=== PATIENT | male | born 1975 | race Caucasian/White ===

== ENCOUNTER 2016-08-11 17:27 | Emergency (ER) | payer BC, OTHER ==
[2016-08-11 17:51] VITALS: BP 124/65; PULSE 74; TEMP 98; BMI 23.1
[2016-08-11] MEDS ORDERED: ALBUTEROL SO4 2.5/IPRATROPIUM 0.5 INH SOL 3 ML VIAL.NEB. NEB ONE ×2 (18:18)
[2016-08-11] MEDS ORDERED: predniSONE 20 MG TABLET (UD) PO ONE (18:18)
[2016-08-11] MEDS ORDERED: predniSONE 20 MG TABLET (UD) ONE (18:23)
--- NOTE | 2016-08-11 18:43 | PDOC ---
History of Present Illness - General Chief Complaint: Respiratory Stated Complaint: CONGESTION/[facility] Time Seen by Provider: 08/11/16 17:57 History Source: Patient Exam Limitations: No Limitations - History of Present Illness Initial Comments: 08/11/16 18:58 Patient is here/[employer], with complaints of cough greater than 3 weeks. States had a cold a few weeks ago which seemed to resolve but he has persistent moist cough. There has been intermittent yellow phlegm production but no fevers. Has a runny nose and mild congestion. Has tried cenr-ymy-jqhlirc medications including Afrin, and TheraFlu. Patient denies seasonal ALLERGIES, however suffers with high pollen seasons with rhinitis. Denies smoking history, denies any recent exposures either on or off duty. 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 denies: dizziness, earache, facial pain, fever/chills, nasal congestion, nasal drainage, shortness of breath Past History - Travel Traveled outside of the country in the last 30 days: No Close contact w/someone who was outside of country & ill: No - Past Medical History Allergies/Adverse Reactions: Allergies Allergy/AdvReac Type Severity Reaction Status Date / Time No Known Allergies Allergy Verified 08/11/16 17:48 Home Medications: Ambulatory Orders Albuterol Sulfate [Proventil HFA Inhaler -] 1 - 2 inh PO QID #1 inhaler Cetirizine HCl/Pseudoephedrine [Allergy+Congestion Relf-D Tab] 1 each PO DAILY # 30 tab 08/11/16 Prednisone [Deltasone -] 20 mg PO BID #8 tablet 08/11/16 Other medical history: NONE - Immunization History Td Vaccination: Yes TDAP Vaccination: No Immunization Up to Date: Yes - Psycho/Social/Smoking Cessation Hx Anxiety: No Suicidal Ideation: No Smoking Status: No Smoking History: Never smoked Years of Tobacco Use: 0 Have you smoked in the past 12 months: No Number of Cigarettes Smoked Daily: 0 Cigars Per Day: 0 Information on smoking cessation initiated: No Hx Alcohol Use: No Drug/Substance Use Hx: No Substance Use Type: None Review of Systems - Review of Systems Able to Perform ROS?: Yes Is the patient limited Kenyan proficient: Yes Constitutional: Yes: Symptoms Reported, See HPI, Malaise. No: Chills, Fever, Loss of Appetite HEENTM: Yes: Symptoms Reported, Nose Congestion. No: Throat Pain Respiratory: Yes: Symptoms reported, See HPI, Cough, Wheezing Cardiac (ROS): No: Symptoms Reported ABD/GI: No: Symptoms Reported : No: Symptoms Reported Musculoskeletal: Yes: Symptoms Reported Integumentary: No: Symptoms Reported All Other Systems: Reviewed and Negative *Physical Exam - Vital Signs Last Vital Signs Temp Pulse Resp BP Pulse Ox 98.0 F 74 18 124/65 97 08/11/16 17:49 08/11/16 17:49 08/11/16 17:49 08/11/16 17:49 08/11/16 17:49 - Physical Exam General Appearance: Yes: Nourished, Appropriately Dressed. No: Apparent Distress HEENT: positive: EOMI, TOBI, Normal ENT Inspection, TMs Normal (congestion ), Pharynx Normal (no redness, swelling, exudate- clear posterior sinus drainage noted), Nasal Congestion, Rhinorrhea. negative: Sinus Tenderness Neck: positive: Supple, Lymphadenopathy (R), Lymphadenopathy (L) Respiratory/Chest: positive: Lungs Clear, Normal Breath Sounds. 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 Will have follow-up with Department PMD for further evaluation and possible other treatment *DC/Admit/Observation/Transfer Diagnosis at time of Disposition: Allergic rhinitis Qualifiers: Allergic rhinitis seasonality: non-seasonal Allergic rhinitis trigger: unspecified Qualified Code(s): J30.89 - Other allergic rhinitis - Discharge Dispostion Disposition: HOME Condition at time of disposition: Stable Admit: No - Patient Instructions Printed Discharge Instructions: DI for Allergic Rhinitis Additional Instructions: Rest, drink lots of fluids: Teas, water, soups Saltwater gargles. Consider humidifier in room at night Steamy showers/seem to face break up mucus Avoid contact with allergens, exposure to pollens, close windows on a windy day Lots of handwashing and good hygiene Continue yfij-ado-ydkrizx medications for symptomatic relief- may use allergic eyedrops for itching I Continue antihistamines daily until pollen season is over; Zyrtec, Claritin, Janette during the daytime and Benadryl at nighttime as will make sleepy Proventil 2 puffs 4 times a day for the next 3 days then as needed for continued cough Complete prednisone 40 mg daily for the additional 4 days Tylenol or Motrin for fever and pain Followup with private physician in one to 2 days as needed Consider following up with an supervisor inspecting/ground surveillance systems operator for skin testing and possible allergy shots Return to emergency department for worsened symptoms, fevers, dehydration - Post Discharge Activity Work/School Note: Back to Work
== END 2016-08-11 19:28 | disposition home or self-care (01) ==
LOC: JERFT 17:27
PROC: 3E0F7GC Introduction of Other Therapeutic Substance into Respiratory Tract, Via Natural or Artificial Opening (ICD-10-PCS; principal; 2016-08-11)
DX: J30.89 Other allergic rhinitis (principal)
CPT/HCPCS: 99281-25

== ENCOUNTER 2016-12-14 03:24 | Emergency (ER) | payer OTHER, BC ==
[2016-12-14 03:34] VITALS: BP 116/86; PULSE 78; TEMP 98; BMI 23.5
[2016-12-14] MEDS ORDERED: IBUPROFEN 400 MG TABLET (FP) PO ONE (03:42)
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
--- NOTE | 2016-12-14 04:11 | PDOC ---
*Physical Exam - Vital Signs Last Vital Signs Temp Pulse Resp BP Pulse Ox 98.0 F 78 18 116/86 99 12/14/16 03:32 12/14/16 03:32 12/14/16 03:32 12/14/16 03:32 12/14/16 03:32 ED Treatment Course - Medications Given in the ED: ED Medications Discontinued Medications Generic Name Dose Route Start Last Admin Trade Name Ramya PRN Reason Stop Dose Admin Ibuprofen 800 mg 12/14/16 03:42 12/14/16 03:55 Motrin - PO 12/14/16 03:43 800 mg ONCE ONE Administration Medical Decision Making - Medical Decision Making 12/14/16 04:10 agree with care from MCKENZIE Mcmillan *DC/Admit/Observation/Transfer Diagnosis at time of Disposition: Wrist pain, left - Discharge Dispostion Disposition: HOME Condition at time of disposition: Good - Referrals Referrals: Antoni Barr MD [Staff Physician] - 1 week Lazaro Cedillo [Primary Care Provider] - - Patient Instructions Printed Discharge Instructions: How To Perform RICE (Rest, Ice, Compress, Elevate), DI for Wrist Pain Additional Instructions: Discharge Instructions: -Take Motrin for pain if needed -Follow RICE instructions -Use MARIUSZ bandage for comfort -Follow up with Dr. Barr within 1 week if no improvement in symptoms - Post Discharge Activity Work/School Note: Back to Work
== END 2016-12-14 04:45 | disposition home or self-care (01) ==
LOC: JER 03:24
PROC: 2W3DX1Z Immobilization of Left Lower Arm using Splint (ICD-10-PCS; principal; 2016-12-14)
DX: S69.82XA Other specified injuries of left wrist, hand and finger(s), initial encounter (principal); Y35.811A Legal intervention involving manhandling, law enforcement official injured, initial encounter; Y93.89 Activity, other specified; Y92.89 Other specified places as the place of occurrence of the external cause; Y99.0 Civilian activity done for income or pay
CPT/HCPCS: 73110-TC-LT; 73130-TC-LT; 99281-25

== ENCOUNTER 2017-09-10 01:26 | Emergency (ER) | payer OTHER ==
[2017-09-10 01:44] VITALS: BP 138/83; PULSE 62; TEMP 97.8; BMI 24.3
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
== END 2017-09-10 02:14 | disposition home or self-care (01) ==
LOC: JER 01:26
DX: Z77.21 Contact with and (suspected) exposure to potentially hazardous body fluids (principal); Y35.891A Legal intervention involving other specified means, law enforcement official injured, initial encounter; Y93.89 Activity, other specified; Y92.89 Other specified places as the place of occurrence of the external cause; Y99.0 Civilian activity done for income or pay
CPT/HCPCS: 99281-25

== ENCOUNTER 2017-11-11 04:22 | Emergency (ER) | payer OTHER ==
[2017-11-11 04:48] VITALS: BP 115/75; PULSE 80; TEMP 97.8; BMI 23.7
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
== END 2017-11-11 05:26 | disposition home or self-care (01) ==
LOC: SUPCPDRO 04:22 → JER 04:22
DX: S80.812A Abrasion, left lower leg, initial encounter (principal); Y35.811A Legal intervention involving manhandling, law enforcement official injured, initial encounter; Y93.89 Activity, other specified; Y92.89 Other specified places as the place of occurrence of the external cause; Y99.0 Civilian activity done for income or pay
CPT/HCPCS: 99281-25

== ENCOUNTER 2017-11-30 02:39 | Emergency (ER) | payer OTHER ==
[2017-11-30 03:02] VITALS: BP 132/107; PULSE 58; TEMP 98.1; BMI 23.7
[2017-11-30] MEDS ORDERED: IBUPROFEN 400 MG TABLET (FP) PO ONE ×2 (03:04→03:18)
--- NOTE | 2017-11-30 03:09 | PDOC ---
History of Present Illness - General Chief Complaint: Pain Stated Complaint: PAIN,RT KNEE-[facility] Time Seen by Provider: 11/30/17 02:57 History Source: Patient Exam Limitations: No Limitations - History of Present Illness Initial Comments: 11/30/17 03:29 41-year-old [place] [employer] presents to the ER complaining of right knee pain. Pain is described as 4/10 dull nonradiating intermittent discomfort. Patient states while stepping on uneven pavement, he twisted his right lower leg causing pain to the right medial knee. Patient denies falling, neck/back pains. Pain is exacerbated on weight-bear and alleviated at rest. Patient denies extremity numbness or tingling sensation. Patient denies any other injuries. Past History - Past Medical History Allergies/Adverse Reactions: Allergies Allergy/AdvReac Type Severity Reaction Status Date / Time No Known Allergies Allergy Verified 11/30/17 02:58 Home Medications: Ambulatory Orders NK [No Known Home Medication] 12/14/16 COPD: No Other medical history: Pt denies - Immunization History Td Vaccination: Yes TDAP Vaccination: No Immunization Up to Date: Yes - Suicide/Smoking/Psychosocial Hx Smoking Status: No Smoking History: Never smoked Years of Tobacco Use: 0 Have you smoked in the past 12 months: No Number of Cigarettes Smoked Daily: 0 Cigars Per Day: 0 Information on smoking cessation initiated: No Hx Alcohol Use: No Drug/Substance Use Hx: No Substance Use Type: None Review of Systems - Review of Systems Able to Perform ROS?: Yes Comments:: 11/30/17 03:30 CONSTITUTIONAL: Absent: fever, chills, diaphoresis, generalized weakness, malaise, loss of appetite HEENT: Absent: rhinorrhea, nasal congestion, throat pain, throat swelling, difficulty swallowing, mouth swelling, ear pain, eye pain, visual Changes CARDIOVASCULAR: Absent: chest pain, loss of consciousness, palpitations, irregular heart rate, peripheral edema RESPIRATORY: Absent: cough, shortness of breath, dyspnea with exertion, orthopnea, wheezing, stridor, hemoptysis GASTROINTESTINAL: Absent: abdominal pain, abdominal distension, nausea, vomiting, diarrhea, constipation, melena, hematochezia GENITOURINARY: Absent: dysuria, frequency, urgency, hesitancy, hematuria, flank pain, genital pain MUSCULOSKELETAL: +right medial knee pain Absent: myalgia, arthralgia, joint swelling SKIN: Absent: rash, itching, pallor HEMATOLOGIC/IMMUNOLOGIC: Absent: easy bleeding, easy bruising, lymphadenopathy, frequent infections ENDOCRINE: Absent: unexplained weight gain, unexplained weight loss, heat intolerance, cold intolerance NEUROLOGIC: Absent: headache, focal weakness or paresthesias, dizziness, unsteady gait, seizure, mental status changes, bladder or bowel incontinence PSYCHIATRIC: Absent: anxiety, depression, suicidal or homicidal ideation, hallucinations. Is the patient limited Macedonian proficient: No *Physical Exam - Vital Signs Last Vital Signs Temp Pulse Resp BP Pulse Ox 98.1 F 58 L 18 132/107 98 11/30/17 03:00 11/30/17 03:00 11/30/17 03:00 11/30/17 03:00 11/30/17 03:00 - Physical Exam Comments: 11/30/17 03:31 GENERAL: Well developed, well nourished. Awake and alert. No acute distress. HEENT: Normocephalic, atraumatic. PERRLA, EOMI. No conjunctival pallor. Sclera are non- icteric. Moist mucous membranes. Oropharynx is clear. NECK: Supple. Full ROM. No JVD. Carotid pulses 2+ and symmetric, without bruits. No thyromegaly. No lymphadenopathy. CARDIOVASCULAR: Regular rate and rhythm. No murmurs, rubs, or gallops. Distal pulses are 2+ and symmetric. PULMONARY: No evidence of respiratory distress. Lungs clear to auscultation bilaterally. No wheezing, rales or rhonchi. ABDOMINAL: Soft. Non-tender. Non-distended. No rebound or guarding. No organomegaly. Normoactive bowel sounds. MUSCULOSKELETAL Normal range of motion at all joints. No bony deformities or tenderness. No CVA tenderness. EXTREMITIES: No cyanosis. No clubbing. No edema. No calf tenderness. SKIN: Warm and dry. Normal capillary refill. No rashes. No jaundice. Right knee Full range of motion Negative anterior midline tenderness Negative varus/valgus Negative anterior-posterior drawer Right ankle Full range of motion 2+ DP pulse Achilles intact Right hip full range of motion ED Treatment Course - RADIOLOGY Radiology Studies Ordered: Category Date Time Status KNEE 2 POS-RIGHT [RAD] Stat Radiology 11/30/17 02:57 Ordered *DC/Admit/Observation/Transfer Diagnosis at time of Disposition: Sprain of right knee Qualifiers: Encounter type: initial encounter Involved ligament of knee: other ligament Qualified Code(s): S83.8X1A - Sprain of other specified parts of right knee, initial encounter - Discharge Dispostion Disposition: HOME Condition at time of disposition: Stable Decision to Admit order: No - Referrals Referrals: Lazaro Cedillo [Primary Care Provider] - Antoni Barr MD [Staff Physician] - - Patient Instructions Printed Discharge Instructions: DI for Knee Sprain Additional Instructions: Ice; 20 mins on alternating with 20 mins off for 48 hours while awake. Rest Elevate Follow up with your orthopedic surgeon or the one listed on the discharge form. Return to the ER for severe/persistent/worsening symptoms, extremity numbness/ tingling sensation. - Post Discharge Activity
== END 2017-11-30 03:50 | disposition home or self-care (01) ==
LOC: JER 02:39
DX: S83.8X1A Sprain of other specified parts of right knee, initial encounter (principal); Y35.91XA Legal intervention, means unspecified, law enforcement official injured, initial encounter; Y93.89 Activity, other specified; Y92.9 Unspecified place or not applicable
CPT/HCPCS: 99281-25; 99282-25

== ENCOUNTER 2018-11-13 21:33 | Emergency (ER) | payer OTHER ==
[2018-11-13 21:58] VITALS: BP 115/72; PULSE 83; TEMP 98; BMI 23.1
[2018-11-13] MEDS ORDERED: DIPHTH,PERTUSS(ACELL),TET 0.5 ML DISP.SYRIN IM ONE ×2 (21:58→22:35)
[2018-11-13] MEDS ORDERED: IBUPROFEN 600 MG TABLET (FP) PO ONE (21:58)
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
[2018-11-13] MEDS ORDERED: IBUPROFEN 400 MG TABLET (FP) PO ONE (22:35)
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
--- NOTE | 2018-11-13 23:39 | PDOC ---
*Physical Exam - Vital Signs Last Vital Signs Temp Pulse Resp BP Pulse Ox 98.0 F 83 16 115/72 100 11/13/18 21:56 11/13/18 21:56 11/13/18 21:56 11/13/18 21:56 11/13/18 21:56 ED Treatment Course - Medications Given in the ED: ED Medications Discontinued Medications Generic Name Dose Route Start Last Admin Trade Name Freq PRN Reason Stop Dose Admin Diphtheria/Tetanus/Acell Pertussis 0.5 ml 11/13/18 21:58 11/13/18 22:42 Boostrix - IM 11/13/18 21:59 0.5 ml .ONCE ONE Administration Ibuprofen 800 mg 11/13/18 21:58 11/13/18 22:41 Motrin - PO 11/13/18 21:59 800 mg ONCE ONE Administration Medical Decision Making - Medical Decision Making 11/13/18 23:39 Case reviewed with MCKENZIE Bermeo Agree with assessment and plan *DC/Admit/Observation/Transfer Diagnosis at time of Disposition: Abrasion - Discharge Dispostion Disposition: HOME Condition at time of disposition: Stable - Referrals - Patient Instructions Printed Discharge Instructions: DI for Abrasion Additional Instructions: Thank you for choosing [facility]. It was a pleasure taking care of you. You may apply some Bacitracin or Neosporin along site of abrasion Take Motrin 600 mg every 6 hours as needed for shoulder pain. Take Motrin with food. Follow-up with your doctor in 2-3 days Return to the Emergency Department if your symptoms worsen or persist or have other concerning symptoms. - Post Discharge Activity
== END 2018-11-13 23:00 | disposition home or self-care (01) ==
LOC: JER 21:33
PROC: 3E0234Z Introduction of Serum, Toxoid and Vaccine into Muscle, Percutaneous Approach (ICD-10-PCS; principal; 2018-11-13)
DX: S40.811A Abrasion of right upper arm, initial encounter (principal); Y35.811A Legal intervention involving manhandling, law enforcement official injured, initial encounter; Y93.89 Activity, other specified; Y92.89 Other specified places as the place of occurrence of the external cause; Y99.0 Civilian activity done for income or pay
CPT/HCPCS: 90715; 99283-25

== ENCOUNTER 2019-02-27 10:16 | Emergency (ER) | payer OTHER ==
[2019-02-27 10:25] VITALS: BP 123/75; PULSE 64; TEMP 98.3; BMI 23.1
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
== END 2019-02-27 12:35 | disposition home or self-care (01) ==
LOC: JERFT 10:16
PROC: 2W3CX3Z Immobilization of Right Lower Arm using Brace (ICD-10-PCS; principal; 2019-02-27)
DX: S69.81XA Other specified injuries of right wrist, hand and finger(s), initial encounter (principal); Y35.811A Legal intervention involving manhandling, law enforcement official injured, initial encounter; Y93.89 Activity, other specified; Y92.89 Other specified places as the place of occurrence of the external cause; Y99.0 Civilian activity done for income or pay
CPT/HCPCS: 73110-TC-RT-FY; 99281-25

== ENCOUNTER 2020-01-15 02:36 | Emergency (ER) | payer OTHER ==
[2020-01-15 02:44] VITALS: BP 118/78; PULSE 79; TEMP 98.4; BMI 25.6
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
== END 2020-01-15 03:13 | disposition home or self-care (01) ==
LOC: FER 02:36
DX: S40.811A Abrasion of right upper arm, initial encounter (principal); S60.512A Abrasion of left hand, initial encounter
CPT/HCPCS: 99282-25

== ENCOUNTER 2020-03-18 08:47 | Emergency (ER) | payer OTHER ==
[2020-03-18 09:02] VITALS: BP 131/83; PULSE 82; TEMP 99; BMI 23.1
[2020-03-18] MEDS ORDERED: IBUPROFEN 400 MG TABLET (FP) PO ONE (09:11)
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
[2020-03-18] MEDS ORDERED: IBUPROFEN 600 MG TABLET (FP) PO ONE (09:13)
== END 2020-03-18 09:50 | disposition home or self-care (01) ==
LOC: FER 08:47
DX: S39.012A Strain of muscle, fascia and tendon of lower back, initial encounter (principal)
CPT/HCPCS: 99284-25

== ENCOUNTER 2020-05-13 22:59 | Emergency (ER) | payer OTHER ==
[2020-05-13 23:07] VITALS: BP 119/79; PULSE 68; TEMP 99.5; BMI 23.1
[2020-05-13] MEDS ORDERED: HIV POST EXPOSURE PROPHYLAXIS KIT PO ONE (23:37)
[2020-05-13] MEDS ORDERED: HIV POST EXPOSURE PROPHYLAXIS KIT NR ONE (23:38)
[2020-05-13] MEDS ORDERED: RALTEGRAVIR POTASSIUM 400 MG TAB PO ONE (23:44)
[2020-05-13] MEDS ORDERED: EMTRICITABINE 200MG/TENOFOVIR 300MG PO ONE (23:44)
[2020-05-14 01:04] LABS: BASO % 1.1 % (0-2.0); EOS % 2.4 % (0-4.5); HEMATOCRIT 40.9 % (35.4-49); HEMOGLOBIN 13.6 GM/dL (11.7-16.9); LYMPH % 37.9 % (8-40); MCH 29.8 pg (25.7-33.7); MCHC 33.3 g/dl (32.0-35.9); MEAN CELL VOLUME 89.5 fl (80-96); MEAN PLT VOLUME 8.4 fl (7.5-11.1); MONO % 9.5 % (3.8-10.2); NEUT % 49.1 % (42.8-82.8); PLATELET COUNT 205 K/MM3 (134-434); RBC 4.58 M/mm3 (4.00-5.60); RDW 12.7 % (11.9-15.9); WHITE BLOOD COUNT 4.6 K/mm3 (4.0-10.0)
[2020-05-14 02:56] LABS: CALCIUM 9.1 mg/dl (8.5-10); PHOSPHOROUS 4.2 mg/dl (2.5-4.9); POTASSIUM 4.1 mmol/L (3.5-5.1)
[2020-05-14 02:57] LABS: ALBUMIN 3.9 g/dl (3.4-5.0); BILIRUBIN,TOTAL 0.6 mg/dl (0.2-1); TOT PROT 6.8 g/dl (6.4-8.2)
[2020-05-14 04:26] LABS: HIV INTERPRETATION NEGATIVE (NEGATIVE)
== END 2020-05-14 00:14 | disposition home or self-care (01) ==
LOC: FER 22:59
DX: Z77.21 Contact with and (suspected) exposure to potentially hazardous body fluids (principal)
CPT/HCPCS: 36415; 80053; 82465; 82977; 83615; 84100; 84478; 84550; 85025; 86317; 86704; 86706; 86803; 87340; 87389; 99283-25

== ENCOUNTER 2022-03-20 12:12 | Emergency (ER) | payer OTHER ==
[2022-03-20 13:07] VITALS: BP 113/67; PULSE 69; RESP 20; TEMP 98.9; BMI 19.3
[2022-03-20] MEDS ORDERED: IBUPROFEN 600 MG TABLET (FP) PO ONE ×2 (13:29)
== END 2022-03-20 13:45 | disposition home or self-care (01) ==
LOC: FER 12:12
DX: S30.0XXA Contusion of lower back and pelvis, initial encounter (principal)
CPT/HCPCS: 72170-TC-FY; 99284-25